=== PATIENT | female | born 1980 | race Caucasian/White ===

== ENCOUNTER → 2017-01-25 | Outpatient (CLI) | payer BC ==
--- NOTE | 2017-01-25 12:26 | US ---
EXAMINATION TYPE: US venous doppler duplex LE RT DATE OF EXAM: 01/25/2017 12:09 PM COMPARISON: NONE CLINICAL HISTORY: Rt lower ext pain M79.661,R22.41 Swelling Rt lower. Pain and swelling right ankle i n 4th as patient is 26 weeks SIDE PERFORMED: Right TECHNIQUE: The lower extremity deep venous system is examined utilizing real time linear array sonog leyda with graded compression, Doppler sonography and color-flow sonography. VESSELS IMAGED: Common Femoral Vein Deep Femoral Vein Greater Saphenous Vein * Femoral Vein Popliteal Vein Small Saphenous Vein * Proximal Calf Veins (* superficial vessels) Right Leg: Negative for DVT. Negative for SVT. Multiple edema channels are noted at ankle at level o f "spider veins". Tech findings called to Indira at Dr Lyles's Office at exam's end. Grayscale, color doppler, spectral doppler imaging performed of the deep veins of the lower extremiti es. There is normal flow, compressibility, vascular waveforms bilaterally. IMPRESSION: No ultrasound evidence for acute DVT. Moderate subcutaneous edema noted at level of ankl e towards end of study.
== END | disposition home or self-care (01) ==
LOC: RADUSWWP 10:41
PROVIDERS: ATTEND Obstetrics & Gynecology
DX: R60.0 Localized edema (principal); M79.661 Pain in right lower leg; R22.41 Localized swelling, mass and lump, right lower limb

== ENCOUNTER 2017-04-24 21:38 | Inpatient (IN) | payer BC ==
[2017-04-25] MEDS ORDERED: CARBOPROST TROMETHAMINE 250 MCG/ML 1 ML AMP IM PRN
[2017-04-25] MEDS ORDERED: TERBUTALINE 1 MG/ML VIAL SQ PRN
[2017-04-25] MEDS ORDERED: LIDOCAINE 1% (PF) 10 MG/ML (30 ML SDV) SQ PRN
[2017-04-25] MEDS ORDERED: METHYLERGONOVINE 0.2 MG/ML 1 ML AMP IM PRN
[2017-04-25] MEDS ORDERED: OXYTOCIN 10 UNIT/ML 1 ML VIAL IM PRN
[2017-04-25 00:46] LABS: Basophils % (A) 0 %; CH 34.4; CHCM 34.7; Eosinophils # (A) 0.1 k/uL (0-0.7); Eosinophils % (A) 2 %; HCT 36.9 % (34.0-46.0); HDW 2.45; HGB 12.7 gm/dL (11.4-16.0); Luc # (Auto) 0.12; Luc % (Auto) 2; Lymphocytes # (A) 1.3 k/uL (1.0-4.8); Lymphocytes % (A) 19 %; MCH 34.3 pg (25.0-35.0); MCHC 34.5 g/dL (31.0-37.0); MCV 99.4 fL (80.0-100.0); Monocytes # (A) 0.3 k/uL (0-1.0); Monocytes % (A) 5 %; Neutrophils # (A) 5.2 k/uL (1.3-7.7); Neutrophils % (A) 73 %; RBC 3.72 m/uL (3.80-5.40); RDW 12.8 % (11.5-15.5); WBC 7.1 k/uL (3.8-10.6); WBC (Perox) 7.39
[2017-04-25 00:54] VITALS: BMI 23.6
[2017-04-25] MEDS: LACTATED RINGERS 1,000 ML IV SCH ×3 (01:04→05:16)
--- NOTE | 2017-04-25 08:25 | P.HPOB ---
History of Present Illness H&P Date: 04/25/17 Chief Complaint: Strong regular uterine contractions This is a 36-year-old female 4 para 3003 EDC 05/01/2017 at 39 and one sevenths weeks' gestation. Patient presented to labor and delivery with strong regular uterine contractions. She denied vaginal bleeding or fluid leakage. Fetus has been active throughout the . Past medical history is significant for osteopenia, and possible fractures bilateral feet, followed by Dr. Bertrand Fuller. She also has a history of varicose veins. Social history patient is , she is a nonsmoker, she denies alcohol or drug use. Family history is remarkable for breast cancer, hypothyroidism, hypertension. ALLERGIES none known. Past surgical history is significant for wisdom teeth extracted. Obstetric history blood type is B+, rubella status immune. Group B strep cultures negative. Hepatitis B surface antigen, VDRL testing, urine culture, HIV testing all negative. As is a pleasant white female, she is 5 foot 6 inches , 146 pounds, vital signs are stable including blood pressure 148/81, patient is afebrile. The general physical exam is within normal limits. Cervix is now 8 cm dilated, 80% effaced, -1 station, vertex presentation. Artificial amniorrhexis reveals clear fluid. heart tones are reassuring in the 140s baseline with frequent accelerations, consistent with reactive NST. Impression: 39 and one sevenths weeks intrauterine , active spontaneous labor. All signs currently reassuring. Plan: Close maternal and surveillance. Epidural has been placed per patient's request. Anticipate normal spontaneous vaginal delivery. We will consult Dr. Bertrand Fuller for possible x-ray of the feet before discharge home. Review of Systems Negative except as in HPI Past Medical History Past Medical History: No Reported History History of Any Multi-Drug Resistant Organisms: None Reported Past Surgical History: No Surgical Hx Reported Additional Past Surgical History / Comment(s): [place] Tooth Extraction Past Anesthesia/Blood Transfusion Reactions: No Reported Reaction Past Psychological History: No Psychological Hx Reported Smoking Status: Never smoker Past Drug Use History: None Reported - Past Family History Mother Family Medical History: Thyroid Disorder Additional Family Medical History / Comment(s): Hypothyroid Medications and Allergies Home Medications Medication Instructions Recorded Confirmed Type Rwm-Qror-Rmhev Acid 1 each PO DAILY 03/30/14 04/24/17 History [-U Capsule] Allergies Allergy/AdvReac Type Severity Reaction Status Date / Time No Known Allergies Allergy Verified 04/24/17 22:36 Exam - Vital Signs Vital signs: Vital Signs Temp Pulse Resp BP 04/24/17 21:50 98.1 F 77 16 126/86 Intake and Output 04/24/17 04/25/17 04/25/17 22:59 06:59 14:59 Intake Total 1900 Balance 1900 Intake: Intake, IV Titration 1900 Amount Lactated Ringers 1,000 ml 1900 @ 125 mls/hr IV .Q8H PRITI Rx#:[id number] Other: # Voids 1 Weight 66.224 kg 66.224 kg Please see dictation under HPI Results Result Diagrams: 04/25/17 00:35 Abnormal Lab Results - Last 24 Hours (Table) 04/25/17 Range/Units 00:35 RBC 3.72 L (3.80-5.40) m/uL Assessment and Plan Plan: Oxytocin augmentation pending progress. Epidural has been placed per her request. Close maternal and surveillance. Anticipate normal spontaneous vaginal delivery. We'll consult Dr. Bertrand Fuller for possible x-ray of the feet prior to discharge home. Time with Patient: Less than 30
[2017-04-25] MEDS ORDERED: OXYTOCIN 20 UNITS/1000 ML NS 1,000 ML IV SCH (10:00)
[2017-04-25] MEDS ORDERED: BENZOCAINE/MENTHOL SPRAY 1 GM/SPRAY AEROSOL TOPICAL PRN (11:41)
[2017-04-25] MEDS ORDERED: SIMETHICONE 80 MG CHEWABLE PO PRN (11:41)
[2017-04-25] MEDS ORDERED: HYDROCORTISONE 2.5% RECTAL CREAM 30 GM TUBE RECTAL PRN (11:41)
[2017-04-25] MEDS ORDERED: ACETAMINOPHEN TAB 325 MG TAB PO PRN (11:41)
[2017-04-25] MEDS ORDERED: diphenhydrAMINE 50 MG/ML 1 ML VIAL IVP PRN ×2 (11:41)
[2017-04-25] MEDS ORDERED: Acetaminophen-Codeine 300-30mg TAB PO PRN (11:41)
[2017-04-25] MEDS ORDERED: diphenhydrAMINE 25 MG CAP PO PRN (11:41)
[2017-04-25] MEDS ORDERED: diphenhydrAMINE 50 MG CAP PO PRN (11:41)
[2017-04-25] MEDS ORDERED: LANOLIN CREAM 5 GM TUBE TOPICAL PRN (11:41)
[2017-04-25] MEDS ORDERED: ZOLPIDEM 5 MG TAB PO PRN (11:41)
[2017-04-25] MEDS ORDERED: WITCH HAZEL 1 EACH MED..PAD TOPICAL PRN (11:41)
[2017-04-25] MEDS ORDERED: diphenhydrAMINE ELIXIR 25 MG/10 ML CUP PO PRN (11:41)
--- NOTE | 2017-04-25 11:41 | P.PROBDLV ---
Vaginal Delivery Note - . Vaginal Delivery Note: This is a 36-year-old 4 para 3003 EDC 05/01/2017 at 39 and one sevenths weeks' gestation. Patient presented in active spontaneous labor with strong regular uterine contractions. is remarkable for bilateral foot pain, suspecting fractures, with a history of osteopenia. This is been followed by Dr. Bertrand Fuller. Please see my dictation for details. Blood type is B+, group B strep cultures negative. Artificial amniorrhexis revealed clear fluid. Patient progressed well through the first stage of labor. She requested and received an epidural without difficulty. She became completely dilated at 1056 hrs. and began the second stage of labor at that time. She pushed well in the dorsal lithotomy position. The perineal body was prepped and draped in usual sterile fashion. Infant's head delivered occiput posterior and he restituted accordingly. There was no nuchal cord noted. The right or anterior shoulder was gently delivered from underneath the pubic symphysis at which time the oropharynx, nasopharynx, and external nares were all bulb suctioned. Patient was officially delivered of a liveborn male at 1027 hrs. Umbilical cord was doubly clamped and ligated, he was handed to waiting nurses for evaluation where scores of 9 and 9 at one and 5 minutes respectively were given. weight 3245 g or 7 lbs. 2 oz. The placenta delivered spontaneously, it was inspected and noted to be intact with trivascular cord at 1129 hrs. Uterus is now massaged, it is firm, mobile, midline, 18 week size. Inspection of the cervix, vagina, perineum, periurethral and perirectal areas revealed a very small first-degree midline perineal laceration. This was reapproximated with a single bjsjlq-pu-ejygg suture of 3-0 Vicryl. All sponge needle and enhancement counts are correct at the end of the procedure. Patient and her are requesting circumcision further son. I have consulted Dr. Fuller for his recommendations regarding potential x-rays of the feet prior to discharge home.
[2017-04-25] MEDS: IBUPROFEN 600 MG TAB PO PRN ×2 (11:55→18:27)
[2017-04-25] MEDS: SENNOSIDES-DOCUSATE SODIUM 1 EACH TAB PO SCH (21:18)
[2017-04-26] MEDS: IBUPROFEN 600 MG TAB PO PRN ×2 (03:16→12:44)
[2017-04-26 08:06] VITALS: BP 136/90; PULSE 67; RESP 18; TEMP 98.4
--- NOTE | 2017-04-26 09:19 | P.DS ---
Providers Date of admission: 04/25/17 00:02 Expected date of discharge: 04/26/17 Attending physician: Joanne Lyles Consults: 04/25/17 07:13 Consult Physician Urgent Consulting Provider: Luke Fuller Consult Reason/Comments: Possible fractures of bilateral lower extremities Do you want consulting provider notified?: Yes Primary care physician: Stated None Hospital Course: This is a 36-year-old white female 4 para 3003 EDC 05/01/2017 at 39 and one sevenths weeks' gestation. Patient presented to labor and delivery in active strong spontaneous labor. is remarkable for bilateral foot pain, suspect fractures. Patient previously consulted with Dr. Bertrand Fuller who is following. otherwise unremarkable, please see my dictated history and physical for details. Artificial amniorrhexis revealed clear fluid. Epidural was placed per her request. She went on to deliver a liveborn male infant weighing 7 lbs. 2 oz. or 3245 g. scores were 9 and 9 at one and 5 minutes respectively. There were no lacerations or defects noted. Please see dictated delivery note for details. This morning the patient is doing well. She is voiding, ambulating and passing flatus without difficulty. Dr. Bertrand Fuller has been consulted, his office was called. Because the patient already has a standing appointment with him, he declined to see the patient in Hospital. She is wearing boots on both lower extremities at this time for severe pain. Breasts are not engorged. Perineal body is clean and dry. Lochia is minimal to moderate. Pain is well-controlled otherwise with Motrin products. Circumcision will be performed this morning. Patient is being discharged home in good condition from the obstetrical standpoint. She is still having severe bilateral foot pain. We have discussed her options for contraception and we will discuss this further in the office. She will use [id number]-bwvekby Motrin products as needed for pain, 600 mg every 6 hours when necessary. I've asked her to call me with any fevers shakes or chills, foul smelling or copious lochia, with the passage of large blood clots, with any pain not alleviated by Motrin, or indeed with any concerns. Infant will follow-up with compass operator as per recommendations. Patient Condition at Discharge: Good Plan - Discharge Summary New Discharge Prescriptions: No Action Bzf-Vopw-Xhyzv Acid [-U Capsule] 1 cap PO DAILY Discharge Medication List Drk-Cray-Guyya Acid [-U Capsule] 1 cap PO DAILY 03/30/14 [ History] Follow up Appointment(s)/Referral(s): Joanne Lyles MD [STAFF PHYSICIAN] - 6 Weeks Discharge Disposition: HOME SELF-CARE
[2017-04-26] MEDS: SENNOSIDES-DOCUSATE SODIUM 1 EACH TAB PO SCH (12:45)
--- NOTE | 2017-04-26 12:46 | P.CNOR ---
History of Present Illness - [facility] Consult date: 04/26/17 Consult reason: joint pain (bilateral foot pain) History of present illness: Patient is pleasant 36 yo female known to our office where we are consulted for bilateral foot pain. She's had chronic left worse than right foot pain during her . Her symptoms have not improved despite utilizing walking boots.. She cannot weight-bear without significant pain. Her left is worse than her right is around her whole foot. Her right ankle bothers her more so than her foot. She's had no recent injuries or trauma to her feet. She states she has a history of stress fractures in her feet. She denies numbness or tingling. She has no calf pain. She has no fever, chills, chest pain or shortness of breath. She has no other complaints. Review of Systems All systems: negative Constitutional: Denies chills, Denies fever Eyes: denies blurred vision, denies pain Ears, nose, mouth and throat: Denies headache, Denies sore throat Cardiovascular: Denies chest pain, Denies shortness of breath Respiratory: Denies cough Gastrointestinal: Denies abdominal pain, Denies diarrhea, Denies nausea, Denies vomiting Genitourinary: Denies dysuria, Denies hematuria Musculoskeletal: Denies myalgias Integumentary: Denies pruritus, Denies rash Neurological: Denies numbness, Denies weakness Psychiatric: Denies anxiety, Denies depression Endocrine: Denies fatigue, Denies weight change Past Medical History Past Medical History: No Reported History History of Any Multi-Drug Resistant Organisms: None Reported Past Surgical History: No Surgical Hx Reported Additional Past Surgical History / Comment(s): [place] Tooth Extraction Past Anesthesia/Blood Transfusion Reactions: No Reported Reaction Past Psychological History: No Psychological Hx Reported Smoking Status: Never smoker Past Drug Use History: None Reported - Past Family History Mother Family Medical History: Thyroid Disorder Additional Family Medical History / Comment(s): Hypothyroid Medications and Allergies Home Medications Medication Instructions Recorded Confirmed Type Rbk-Hrxa-Rvukz Acid 1 cap PO DAILY 03/30/14 04/25/17 History [-U Capsule] Allergies Allergy/AdvReac Type Severity Reaction Status Date / Time gluten AdvReac Nausea & Verified 04/25/17 10:12 Vomiting Physical Examination Inspection of the lower extremities is benign where she has full motor and sensation throughout. There is no wounds or deformities. She has painless passive range of motion at both ankles and feet. Joints are not hot or red. She is nontender to palpation. There is no laxity in both ankles and feet are ligamentously stable. She has a normal to high arch bilaterally. 2+ dorsalis pedis pulses and less than 2 second cap refill are present. Calves are soft and nontender. Results - Labs Labs: H & H 04/25/17 Range/Units 00:35 Hgb 12.7 (11.4-16.0) gm/dL Hct 36.9 (34.0-46.0) % Result Diagrams: 04/25/17 00:35 Assessment and Plan (1) Bilateral foot pain Narrative/Plan: We will have her obtain x-rays of bilateral feet and ankles while weightbearing. She will follow up with Dr. Forman, our foot and ankle specialists as an outpatient this week. Continue walking boots and weightbearing as tolerated in the interim. Status: Acute Time with Patient: Less than 30
--- NOTE | 2017-04-26 14:05 | XR ---
EXAMINATION TYPE: XR foot complete bilateral DATE OF EXAM: 04/26/2017 COMPARISON: NONE HISTORY: Bilateral foot and ankle pain TECHNIQUE: 3 views each foot. Weight-bearing could not be performed as patient was unable to bear jayleen ght on a single foot. FINDINGS: Juxta articular osteoporosis is present. Diffuse osteoporosis through the right foot is not ed. There is soft tissue swelling through the posterior right foot. Displaced fracture is not identif ied. A stress fracture may be within the distal third left metatarsal. No additional fractures are ev ident. IMPRESSION: 1. Suspected nondisplaced stress fracture of the left distal third metatarsal metaphysis. 2. 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 3. Appears to be soft tissue swelling within the posterior aspect of the ankles bilaterally with loss of the normal fat planes.
== END 2017-04-26 14:50 | disposition home or self-care (01) | DRG 775 ==
LOC: FBPOP 21:38 → 4FBP 04-25 00:02
PROVIDERS: ADMIT Obstetrics & Gynecology; ATTEND Obstetrics & Gynecology
PROC: 10E0XZZ Delivery of Products of Conception, External Approach (ICD-10-PCS; principal; 2017-04-25)
PROC: 0HQ9XZZ Repair Perineum Skin, External Approach (ICD-10-PCS; 2017-04-25)
PROC: 00HU33Z Insertion of Infusion Device into Spinal Canal, Percutaneous Approach (ICD-10-PCS; 2017-04-25)
PROC: 3E0R3CZ (ICD-10-PCS; 2017-04-25)
DX: O70.0 First degree perineal laceration during delivery (principal); M84.374A Stress fracture, right foot, initial encounter for fracture; M84.375A Stress fracture, left foot, initial encounter for fracture; M85.80 Other specified disorders of bone density and structure, unspecified site; Z37.0 Single live birth; Z3A.39 39 weeks gestation of pregnancy
CPT/HCPCS: 59025; 85025; 88307; 99213

== ENCOUNTER → 2017-04-28 | Outpatient (CLI) | payer BC ==
[2017-04-28 15:15] LABS: CH 34.4; CHCM 34.4; HCT 34.6 % (34.0-46.0); HGB 12.3 gm/dL (11.4-16.0); MCH 35.6 pg (25.0-35.0); MCHC 35.5 g/dL (31.0-37.0); MCV 100.4 fL (80.0-100.0); Mean Platelet Volume 8.6; RBC 3.45 m/uL (3.80-5.40); RDW 13.2 % (11.5-15.5); WBC 6.5 k/uL (3.8-10.6)
[2017-04-28 15:18] LABS: Appearance,Urine Clear (Clear); Bacteria,Urine Rare /hpf; Bilirubin,Urine Negative (Negative); Glucose,Urine (UA) Negative (Negative); Ketones,Urine Negative (Negative); Leukocyte Esterase,Urine Negative (Negative); Nitrite,Urine Negative (Negative); Particle Count 713; Protein,Urine Negative (Negative); RBC,Urine <1 /hpf (0-5); Specific Gravity,Urine 1.004 (1.001-1.035); Squamous Epithelial Cell,Urine <1 /hpf (0-4); UA Billing (MACRO vs. MICRO) MICRO; Urobilinogen,Urine <2.0 mg/dL (<2.0); WBC,Urine 1 /hpf (0-5)
[2017-04-28 15:29] LABS: ALT 32 U/L (9-52); AST 31 U/L (14-36); Alkaline Phosphatase 79 U/L (38-126); Anion Gap 6 mmol/L; Blood Urea Nitrogen 15 mg/dL (7-17); Calcium 10.2 mg/dL (8.4-10.2); Carbon Dioxide 26 mmol/L (22-30); Chloride 106 mmol/L (98-107); Glucose 94 mg/dL (74-99); Non-African American GFR(MDRD) >60 (>60 ml/min/1.73 sqM); Phosphorous 4.4 mg/dL (2.5-4.5); Potassium 4.2 mmol/L (3.5-5.1); Sodium 138 mmol/L (137-145); Total Bilirubin 0.3 mg/dL (0.2-1.3); Total Protein 5.6 g/dL (6.3-8.2)
[2017-04-28 16:15] LABS: Erythrocyte Sedimentation Rate 15 mm/hr (0-20)
== END | disposition home or self-care (01) ==
LOC: LABWHC1 14:53
PROVIDERS: ATTEND Orthopaedic Surgery
DX: E55.9 Vitamin D deficiency, unspecified (principal)
CPT/HCPCS: 36415; 80053; 81001; 82306; 82310; 82652; 83970; 84100; 85027; 85652